=== PATIENT | male | born 1965 | race Caucasian/White ===

== ENCOUNTER 2023-03-13 11:20 | Emergency (ER) | payer OTHER ==
[~2023-03-13] VITALS: Ht 190.5 cm; Wt 137.0 kg
[2023-03-13 11:26] VITALS: BP 141/103
== END 2023-03-13 13:24 | disposition home or self-care (01) ==
LOC: ER 11:20
DX: S60.221A Contusion of right hand, initial encounter (principal); W22.8XXA Striking against or struck by other objects, initial encounter
CPT/HCPCS: 73130; 99283-25